=== PATIENT | female | born 1980 | race Asian ===

== ENCOUNTER 2023-01-30 09:15 | Emergency (ER) | payer BC ==
[~2023-01-30] VITALS: Ht 160 cm; Wt 76.7 kg
[2023-01-30 09:20] VITALS: BP_SYST 135; PULSE 113; RESP 22; TEMP 98.3; O2SAT 100
[2023-01-30 10:20] LABS: BILIRUBIN,URINE NEGATIVE (NEGATIVE); BLOOD, URINE 2+ (NEGATIVE); CLARITY/URINE SL CLOUDY (CLEAR); COLOR,URINE YELLOW (YELLOW); GLUCOSE,URINE 3+ (NEGATIVE); KETONES,URINE TRACE (NEGATIVE); LEUKOCYTE ESTERASE ,URINE 2+ (NEGATIVE); NITRITE, URINE NEGATIVE (NEGATIVE); PH,URINE 6.5 (5.0-8.0); PROTEIN URINE TRACE (NEGATIVE); UROBILINOGEN,URINE 0.2 (0.2-1.0)
[2023-01-30 10:35] LABS: BASOPHILS % (AUTO) 0.3 % (0.0-2.0); EOSINOPHILS % (AUTO) 0.4 % (0.0-4.0); HEMATOCRIT 37.9 % (36-48); HEMOGLOBIN 12.7 g/dL (12.0-16.0); LYMPHOCYTES # (AUTO) 1.4 K/uL (1.0-5.5); LYMPHOCYTES % (AUTO) 22.1 % (20.5-51.5); MEAN CORPUSCULAR HEMOGLOBIN 30 pg (27-31); MEAN CORPUSCULAR HGB CONC 34 % (32-36); MEAN CORPUSCULAR VOLUME 90 fL (79.0-98.0); MONOCYTES # (AUTO) 0.4 K/uL (0.0-1.0); MONOCYTES % (AUTO) 5.8 % (1.7-9.3); NEUTROPHILS # (AUTO) 4.6 K/uL (1.8-7.7); NEUTROPHILS % (AUTO) 71.4 % (40.0-70.0); PLATELET COUNT (AUTO) 385 K/uL (130-430); RED BLOOD CELL COUNT(AUTO) 4.21 MIL/uL (4.2-6.2); RED CELL DISTRIBUTION WIDTH 12.8 % (9.0-15.0); WHITE BLOOD COUNT (AUTO) 6.5 K/uL (4.8-10.8)
[2023-01-30 10:49] LABS: CALCIUM 9.5 mg/dL (8.4-11.0); CREATININE 0.42 mg/dL (0.55-1.30); POTASSIUM 3.4 mmol/L (3.5-5.1)
[2023-01-30 11:06] LABS: BACTERIA,URINE FEW /HPF (None Seen)
[2023-01-30] MEDS ORDERED: NAPR-688 PO (11:44)
[2023-01-30] MEDS ORDERED: NITR-85 PO (11:44)
[2023-01-30] MEDS ORDERED: MECL-292 PO (11:44)
[2023-01-30 11:58] VITALS: BP_SYST 135; PULSE 113; RESP 22; TEMP 98.3; O2SAT 100
== END 2023-01-30 12:00 | disposition home or self-care (01) ==
LOC: SED 09:15
DX: N39.0 Urinary tract infection, site not specified (principal); R42 Dizziness and giddiness; E11.9 Type 2 diabetes mellitus without complications; Z79.899 Other long term (current) drug therapy
CPT/HCPCS: 36415; 70450-TC; 76376; 80048; 81000; 81001; 81015; 81025; 85025; 87086; 99284